=== PATIENT | male | born 1995 | race Two or more races ===

== ENCOUNTER 2018-07-07 19:08 | Emergency (ER) | payer MEDICAID ==
[~2018-07-07] VITALS: Ht 182.9 cm; Wt 74.0 kg
[2018-07-08 00:29] VITALS: BP 133/80
== END 2018-07-07 21:54 | disposition left against medical advice (07) ==
LOC: ER 19:08
DX: Z53.21 Procedure and treatment not carried out due to patient leaving prior to being seen by health care provider (principal)